=== PATIENT | female | born 1965 | race Caucasian/White ===

== ENCOUNTER → 2020-05-17 | Outpatient (CLI) | payer MEDICARE ==
[~2020-05-17] MED LIST: BACL10TA PO; DCS100C PO; ESTR1TAB24 PO; IBP800T PO; LVT.05T PO; METO100T2 PO; OXYC30TA22 PO; PARO40TA47 PO; PRM25T PO; RNT150T PO; TIZA4TAB55 PO; TRAM50TA2 PO
--- NOTE | 2020-05-17 11:27 | Diagnostic Imaging Report ---
INDICATION: Chest pain. TIME OF EXAM: 9:58 a.m. No prior studies are available for comparison. Dual lead left subclavian cardiac pacemaker has lead tips in the region of the right atrium and right ventricle. There is some ectasia and tortuosity of the descending thoracic aorta. There are fractures involving right-sided sixth, seventh and eighth posterior ribs, age indeterminate. Lungs are clear. No infiltrates are seen. There is no effusion or pneumothorax. IMPRESSION: Right-sided posterior rib fractures. No other significant abnormality is detected. Dictated by: Dictated on workstation # [id number]
--- NOTE | 2020-05-17 12:55 | Diagnostic Imaging Report ---
INDICATION: Neck pain. FINDINGS: Curvature of the cervical spine is normal. There appears to be minimal anterolisthesis at C5 on C6. There is multilevel degenerative disc disease with variable disc space narrowing and marginal spurring. Multilevel facet arthropathy is noted. No definite fractures are seen. IMPRESSION: Cervical spondylosis. No acute bony abnormality is detected. Dictated by: Dictated on workstation # [id number]
--- NOTE | 2020-05-17 12:56 | Diagnostic Imaging Report ---
INDICATION: Back pain. TIME OF EXAM: 10:10 AM FINDINGS: There is a significant lower thoracic and lumbar left convexity scoliotic curvature. Vertebral body heights appear to be maintained. No acute compression fracture is identified. There is generalized spondylosis. IMPRESSION: Thoracolumbar scoliosis and spondylosis. No acute bony abnormality is detected. Dictated by: Dictated on workstation # [id number]
== END ==
LOC: RAD FS 09:46
PROVIDERS: ATTEND Family Medicine
DX: M41.85 Other forms of scoliosis, thoracolumbar region (principal); M47.814 Spondylosis without myelopathy or radiculopathy, thoracic region; S22.41XA Multiple fractures of ribs, right side, initial encounter for closed fracture; M47.812 Spondylosis without myelopathy or radiculopathy, cervical region; Z95.0 Presence of cardiac pacemaker
CPT/HCPCS: 71046; 72040; 72072

== ENCOUNTER → 2021-02-01 | Outpatient (CLI) | payer MEDICARE ==
--- NOTE | 2021-02-01 15:49 | Diagnostic Imaging Report ---
INDICATION: Abdominal pain. TIME OF EXAM: 3:33 PM FINDINGS: S-shaped thoracolumbar scoliotic curvature is noted. The cardiac pacer is in place. There are right sided rib fractures, age indeterminate. No definite free air is seen. Bowel gas pattern appears to be nonobstructed. No pathologic calcifications are seen. There are atherosclerotic calcifications involving the abdominal aorta. IMPRESSION: No acute feature detected. Dictated by: Dictated on workstation # [id number]
== END ==
LOC: RAD FS 15:21
PROVIDERS: ATTEND Family Medicine
DX: R10.84 Generalized abdominal pain (principal)
CPT/HCPCS: 74022

== ENCOUNTER 2021-12-05 14:09 | Emergency (ER) | payer MEDICARE ==
[~2021-12-05] VITALS: Ht 149.8 cm; Wt 48.0 kg
[2021-12-05] MEDS ORDERED: cefTRIAXone 1,000 MG VIAL IM STA (14:28)
[2021-12-05] MEDS ORDERED: LIDOCAINE 1% INJ 20 ML VIAL INJ ONE (14:30)
[2021-12-05] MEDS ORDERED: CEPH500C PO (14:48)
--- NOTE | 2021-12-05 14:48 | ED Integumentary General ---
General Chief Complaint: Skin/Wound Problems Stated Complaint: LT ARM SWELLING/REDNESS Nursing Triage Note: Patient presents to the ED with c/o left arm redness, swelling, and. Reports symptoms began 3 days ago. Source: patient History of Present Illness Date Seen by Provider: Dec 05, 2021 Time Seen by Provider: 14:14 Initial Comments 56-year-old female presents with complaints of redness and swelling with pain to the left elbow. She reports a chronic psoriasis but does not usually get red and painful. She felt like she might be getting a fever at times. She denies any known direct trauma to her elbow. She had increased warmth to the left elbow. She was concerned that she might be getting an infection and she does have a pacemaker so she was worried that the pacemaker might get compromised. Her primary care provider, Dr. Gao, is on [facility] so she came to the emergency department since she was not sure how to be seen otherwise Timing/Duration: getting worse (Over the last few days) Severity: moderate Location: extremities (Left elbow) Possible Cause: no cause identified Associated Symptoms: No blisters; change in skin texture, edema; No fever, No flushing, No headache, No hives, No jaundice, No malaise, No nasal congestion, No numbness, No pallor, No paresthesia, No petechiae, No rash, No sore throat; swelling/mass/lumps (Swelling with increased warmth and tenderness to the left elbow) Allergies and Home Medications Allergies Coded Allergies: Sulfamethoxazole (Unverified Allergy, 01/16/13) adenosine (Unverified Allergy, 01/16/13) trimethoprim (Unverified Allergy, 01/16/13) Patient Home Medication List Home Medication List Reviewed: Yes Baclofen (Baclofen) 10 Mg Tablet, 20 MG PO QID, (Reported) Entered as Reported by: MARKEL ORTIZ on 01/16/13 1525 Cephalexin (Cephalexin) 500 Mg Capsule, 500 MG PO QID Prescribed by: JOE NOLAN on 12/05/21 1448 Docusate Sodium (Colace) 100 Mg Capsule, 100 MG PO BID, (Reported) Entered as Reported by: BRYN BARBOSA on 01/21/13 1353 Estradiol (Estradiol) 1 Mg Tablet, 1 MG PO DAILY, (Reported) Entered as Reported by: BRYN BARBOSA on 01/21/13 1353 Ibuprofen (Motrin Tablet) 800 Mg Tablet, 800 MG PO Q6H PRN, (Reported) Entered as Reported by: BRYN BARBOSA on 01/21/13 1353 Levothyroxine Sodium (Levothyroxine 50 Mcg Tab) 50 Mcg Tablet, 50 MCG PO DAILY, (Reported) Entered as Reported by: MARKEL ORTIZ on 01/16/13 152 Metoprolol Tartrate (Metoprolol Tartrate 100 Mg) 100 Mg Tablet, 50 MG PO DAILY, (Reported) Entered as Reported by: MARKEL ORTIZ on 01/16/13 1525 Oxycodone Hcl (Roxicodone) 30 Mg Tablet, 120 MG PO Q4H PRN, (Reported) Entered as Reported by: MARKEL ORTIZ on 01/16/13 152 Paroxetine Hcl (Paxil) 40 Mg Tablet, 40 MG PO DAILY, (Reported) Entered as Reported by: MARKEL ORTIZ on 01/16/13 153 Promethazine Hcl (Phenergan 25 Mg) 25 Mg Tablet, 25 MG PO QID PRN, (Reported) Entered as Reported by: MARKEL ORTIZ on 01/16/13 1534 Ranitidine Hcl (Zantac 150 Mg) 150 Mg Tablet, 150 MG PO DAILY, (Reported) Entered as Reported by: MARKEL ORTIZ on 01/16/13 153 Tizanidine Hcl (Tizanadine Hcl) 4 Mg Tablet, 4 MG PO Q6H PRN, (Reported) Entered as Reported by: MARKEL ORTIZ on 01/16/13 152 Tramadol Hcl (Tramadol Hcl) 50 Mg Tablet, 100 MG PO QID, (Reported) Entered as Reported by: MARKEL ORTIZ on 01/16/13 152 Review of Systems Review of Systems Constitutional: No chills, No fever EENTM: no symptoms reported Respiratory: no symptoms reported Cardiovascular: no symptoms reported Gastrointestinal: no symptoms reported Genitourinary: no symptoms reported Musculoskeletal: see HPI Skin: see HPI, change in color Psychiatric/Neurological: Denies Numbness, Denies Paresthesia Past [id number]-Rqpjok-Lbzvow Hx Patient Social History Tobacco Use?: Yes Tobacco type used: Cigarettes Smoking Status: Current Everyday Smoker Substance use?: No Alcohol Use?: No Pt feels they are or have been: No Immunizations Up To Date First/Initial COVID19 Vaccinat: Yes Second COVID19 Vaccination Misael: Yes COVID19 Vaccine Dining Room Host/Hostess: Marinamargaret Past Medical History Surgery/Hospitalization HX: Scoliosis; Stenosis neck and back; osteoporosis; HTN; Pacemaker; hysterectomy; bladdersling; High cholesterol Reproductive Disorders: Yes (BURST OVARY) Physical Exam Vital Signs Vital Signs - First Documented 12/05/21 14:30 Temp 36.1 Pulse 61 Resp 18 B/P (MAP) 109/74 (86) Pulse Ox 97 O2 Delivery Room Air Capillary Refill : Less Than 3 Seconds General Appearance: no apparent distress, other (Chronically ill) Cardiovascular: normal peripheral pulses Extremities: normal range of motion, normal capillary refill, inflammation (Redness with increased warmth and swelling to the left elbow) Neurologic/Psychiatric: alert, oriented x 3 Skin: warm/dry Skin Problem Location: upper extremities (Left elbow) Skin Problem Character: erythema, swelling, tenderness, warm Progress/Results/Core Measures Results/Orders My Orders Orders - JOE NOLAN MD Ceftriaxone (Rocephin) (12/05/21 14:28) Lidocaine 1% Inj 20 Ml (Xylocaine 1% Inj (12/05/21 14:30) Medications Given in ED Current Medications Medications Dose Ordered Sig/Nereida Route Start Time Stop Time Status Last Admin Dose Admin Lidocaine HCl 2.1 ml ONCE ONCE INJ 12/05/21 14:30 12/05/21 14:31 DC 12/05/21 14:41 2.1 ML Vital Signs/I&O 12/05/21 12/05/21 14:30 14:56 Temp 36.1 36.1 Pulse 61 61 Resp 18 18 B/P (MAP) 109/74 (86) 109/74 Pulse Ox 97 97 O2 Delivery Room Air Room Air Blood Pressure Mean: 86 Progress Progress Note : Progress Note With the increased warmth, redness, swelling and tenderness will treat with Rocephin IM to cover for possible cellulitis. Continue with cephalexin by mouth. Advised if not improving by or Sunday to be seen again. Departure Impression Primary Impression: Cellulitis of left elbow Disposition: 01 HOME, SELF-CARE Condition: Stable Departure-Patient Inst. Decision time for Depature: 14:46 Referrals: SNEHA GAO MD (PCP) Primary Care Physician Patient Instructions: Cellulitis (Skin Infection), Adult ED Add. Discharge Instructions: Take antibiotics to treat for skin infection. Follow up with clinic if not improving by or Sunday All discharge instructions reviewed with patient and/or family. Voiced understanding. Scripts Cephalexin (Cephalexin) 500 Mg Capsule 500 MG PO QID for cellulitis for 10 Days, #40 CAP 0 Refills Prov: JOE NOLAN MD 12/05/21 JOE NOLAN MD Dec 05, 2021 14:48
[2021-12-05 14:56] VITALS: BP 109/74
== END 2021-12-05 14:56 | disposition home or self-care (01) ==
LOC: EDUNIT# 14:09 → ER FS 14:10
DX: L03.114 Cellulitis of left upper limb (principal); F17.210 Nicotine dependence, cigarettes, uncomplicated
CPT/HCPCS: 99284